=== PATIENT | male | born 1975 | race Caucasian/White ===

== ENCOUNTER 2017-04-07 19:34 | Emergency (ER) | payer OTHER ==
[~2017-04-07] VITALS: Ht 152.4 cm; Wt 45.0 kg
[~2017-04-07 19:34] MED LIST: GLC/500 PO; LEVO125T4 PO; LRS10; PRLSR20 PO
[2017-04-07 19:43] VITALS: Ht 152.4 cm; Wt 45.0 kg
[2017-04-07] MEDS ORDERED: LPT20 PO (21:21)
[2017-04-07] MEDS ORDERED: METF500T5 PO (21:21)
[2017-04-07] MEDS ORDERED: AMT10 PO (21:21)
[2017-04-07] MEDS ORDERED: SULF800T23 PO (21:21)
[2017-04-07] MEDS ORDERED: SODIUM CHLORIDE 0.9% 1000ML 1,000 ML IV STA (21:24)
[2017-04-07] MEDS ORDERED: IBUPROFEN 200 MG TAB PO STA (21:24)
[2017-04-07] MEDS ORDERED: MoRPHine SULFATE 4 MG/ML 1 ML CARP\\VIAL IV STA (21:24)
[2017-04-07] MEDS ORDERED: ACETAMINOPHEN 325 MG TAB PO STA (21:24)
--- NOTE | 2017-04-07 21:40 | EMERGENCY ROOM VISIT NOTE ---
History Report prepared by Butch: Yuri Mandel Under the Supervision of: Dr. Dereck Boone M.D. First contact with patient: 21:03 Chief Complaint: URINARY SYMPTOMS Stated Complaint: UTI Nursing Triage Summary: Patient is being treated for UTI started on Bactrium today and AZO for pain. Worsening pain in right groin. History of Present Illness The patient is a 41 year old white male with a past medical history of diabetes , hyperthyroid, high cholesterol, and UTIs who presents to the ED with a cc of constant pain with urination beginning earlier today. Positive scrotum pain, penis pain, fever, chills, and vomiting. Negative hematuria, penile discharge, alcohol use, tobacco use, or drug use. He has been treated for a UTI with antibiotics earlier today. He is taking all of his medications. Source of History: patient, parent Onset: earlier today Position: other (urinary tract) Timing: constant Associated Symptoms: + fevers, + chills, + vomiting Review of Systems See HPI for pertinent positives and negatives. A total of ten systems were reviewed and were otherwise negative. Past Medical & Surgical Medical Problems: (1) Intellectual disability (2) Klippel-Feil syndrome (3) Scoliosis Surgical Problems: (1) Status post lumbar spinal fusion (2) Status post orchiopexy Family History Breast cancer AUNT Congestive heart failure GRANDMOTHER Diabetes mellitus GRANDFATHER Uncle Hypertension GRANDMOTHER Social History Smoking Status: Never Smoker Alcohol Use: none Drug Use: none Marital Status: single Housing Status: lives with family Occupation Status: employed, disabled Current/Historical Medications Scheduled Amitriptyline HCl (Amitriptyline HCl), 1-2 TABS PO HS Atorvastatin (Atorvastatin Calcium), 20 MG PO DAILY Ciprofloxacin (Ciprofloxacin HCl), 1 TAB PO QD Levothyroxine Sodium (Levothyroxine Sodium), 1 TAB PO DAILY Metformin Hcl Er (Glucophage Er), 500 MG PO BID Omeprazole (Prilosec), 20 MG PO DAILY Sulfa/Trimethoprim (Bactrim Ds 800MG/160MG), 1 TAB PO BID Scheduled PRN Tramadol (Ultram), 50 MG PO Q8H PRN for Pain Allergies Coded Allergies: Iodinated Diagnostic Agents (Verified Allergy, Intermediate, iodine dye injected before steroid believed to cause rash, 04/07/17) Physical Exam Vital Signs Date Time Temp Pulse Resp B/P (MAP) Pulse Ox O2 Delivery O2 Flow Rate FiO2 04/08/17 01:30 81 20 94/64 98 04/08/17 00:31 86 18 108/74 Room Air 04/07/17 23:05 37.0 98 16 104/63 98 Room Air 04/07/17 19:43 37.8 127 18 115/71 98 Room Air Physical Exam GENERAL: Awake, alert, well-appearing, NAD HENT: Normocephalic, atraumatic. EYES: Mild conjunctival injection of the right eye. No drainage. Sclera non- icteric. NECK: Supple. No nuchal rigidity. FROM. RESPIRATORY: CTAB, no rhonchi, wheezing, crackles CARDIAC: Tachycardic and regular, no MRG ABDOMEN: Soft, NTND, BS+ MSK: No CVA TTP. No chest wall TTP, no LE edema : Mildly enlarged and tenderness of the left testicle. No scrotum swelling No penile pain. No peroneal pain or crepitus. NEURO: GCS 15, CN 2-12 intact, moves all 4s on command SKIN: No rash or jaundice noted. Medical Decision & Procedures ER Provider Diagnostic Interpretation: Radiology results as stated below per my review and radiologist interpretation: US SCROTAL: No intratesticular mass lesion or torsion. Hyperemia of the left testicle and epididymis suggesting the epididymo- orchitis. Small left hydrocele with septation. Radiologist: Smiley Au MD. Laboratory Results 04/07/17 21:30 Red Blood Count 4.64, Mean Corpuscular Volume 85.3, Mean Corpuscular Hemoglobin 31.0, Mean Corpuscular Hemoglobin Concent 36.4, Mean Platelet Volume 9.1, Neutrophils (%) (Auto) 87.3, Lymphocytes (%) (Auto) 2.9, Monocytes (%) (Auto) 9.0, Eosinophils (%) (Auto) 0.1, Basophils (%) (Auto) 0.2, Neutrophils # (Auto) 15.58, Lymphocytes # (Auto) 0.52, Monocytes # (Auto) 1.61, Eosinophils # (Auto) 0.01, Basophils # (Auto) 0.03 04/07/17 21:30 Test 04/07/17 21:30 04/07/17 23:35 White Blood Count 17.84 K/uL (4.8-10.8) Red Blood Count 4.64 M/uL (4.7-6.1) Hemoglobin 14.4 g/dL (14.0-18.0) Hematocrit 39.6 % (42-52) Mean Corpuscular Volume 85.3 fL (80-100) Mean Corpuscular Hemoglobin 31.0 pg (25-34) Mean Corpuscular Hemoglobin Concent 36.4 g/dl (32-36) Platelet Count 232 K/uL (130-400) Mean Platelet Volume 9.1 fL (7.4-10.4) Neutrophils (%) (Auto) 87.3 % Lymphocytes (%) (Auto) 2.9 % Monocytes (%) (Auto) 9.0 % Eosinophils (%) (Auto) 0.1 % Basophils (%) (Auto) 0.2 % Neutrophils # (Auto) 15.58 K/uL (1.4-6.5) Lymphocytes # (Auto) 0.52 K/uL (1.2-3.4) Monocytes # (Auto) 1.61 K/uL (0.11-0.59) Eosinophils # (Auto) 0.01 K/uL (0-0.5) Basophils # (Auto) 0.03 K/uL (0-0.2) RDW Standard Deviation 39.4 fL (36.4-46.3) RDW Coefficient of Variation 12.6 % (11.5-14.5) Immature Granulocyte % (Auto) 0.5 % Immature Granulocyte # (Auto) 0.09 K/uL (0.00-0.02) Anion Gap 10.0 mmol/L (3-11) Est Creatinine Clear Calc Drug Dose 48.1 ml/min Estimated GFR () 79.1 Estimated GFR (Non- 68.3 BUN/Creatinine Ratio 10.2 (10-20) Calcium Level 8.8 mg/dl (8.5-10.1) Urine Color ORANGE Urine Appearance CLOUDY (CLEAR) Urine pH (4.5-7.5) Urine Specific [place] 1.013 (1.000-1.030) Urine Protein NEG (NEG) Urine Glucose (UA) (NEG) Urine Ketones (NEG) Urine Occult Blood (NEG) Urine Nitrite (NEG) Urine Bilirubin (NEG) Urine Urobilinogen (NEG) Urine Leukocyte Esterase (NEG) Urine RBC (Auto) /hpf (0-4) Urine RBC 5-10 /hpf (0-4) Urine WBC >30 /hpf (0-5) Urine Epithelial Cells >30 /lpf (0-5) Urine Bacteria 2+ (NEG) Laboratory results reviewed by me Medications Administered Medications (Trade) Dose Ordered Sig/Shari Route Start Time Stop Time Status Last Admin Dose Admin Sodium Chloride 1,000 ml @ 999 mls/hr Q1H1M STAT IV 04/07/17 21:24 04/07/17 22:24 DC 04/07/17 21:47 999 MLS/HR Morphine Sulfate (MoRPHine SULFATE INJ) 4 mg NOW STAT IV 04/07/17 21:24 04/07/17 21:26 DC 04/07/17 21:46 4 MG Ibuprofen (Advil Tab) 400 mg NOW STAT PO 04/07/17 21:24 04/07/17 21:26 DC 04/07/17 21:46 400 MG Acetaminophen (Tylenol Tab) 650 mg NOW STAT PO 04/07/17 21:24 04/07/17 21:26 DC 04/07/17 21:46 650 MG Ceftriaxone Sodium (Rocephin Inj) 1 gm NOW STAT IV 04/07/17 22:30 04/07/17 22:31 DC 04/07/17 22:59 1 GM Acetaminophen/ Hydrocodone Bitart (Renick 10/325 Tab) 1 tab ONE STAT PO 04/08/17 00:47 04/08/17 00:50 DC 04/08/17 01:18 1 TAB ED Course 2102: The patient was evaluated in room C11. A complete history and physical exam was performed. 2123: Tylenol Tab 650mg PO, Advil Tab 400mg PO, Morphine Sulfate Inj 4mg IV, Sodium Chloride 1000 ml @ 999 mls/hr IV 2230: Rocephin Inj 1gm IV 0010: I reevaluated the patient, and he was feeling better. 0040: I reevaluated the patient. Discussed results and discharge instructions: He verbalized understanding and agreement. The patient is ready for discharge. Medical Decision The patient is a 41 year old white male with a past medical history of diabetes , hyperthyroid, high cholesterol, and UTIs who presents to the ED with a cc of constant pain with urination beginning earlier today. Positive scrotum pain, penis pain, fever, chills, and vomiting. Negative hematuria, penile discharge, alcohol use, tobacco use, or drug use. Differential diagnosis: Etiologies such as UTI, torsion, mass, infection, hernia, hydrocele, epididymitis, trauma, intra-abdominal process, as well as others were entertained. Patient was seen and evaluated at the bedside. Patient was recently told and treated for a UTI with Bactrim. Patient was still having significant groin pain. Patient was seen and noted to have an enlarged left testicle and painful posterior testicle likely consistent with epididymitis and orchitis. Patient blood work and did receive antibiotics and fluids. Patient's tachycardia improved. Patient did have a white blood cell count of 17. Patient did receive an ultrasound which showed that he did have epididymitis orchitis. Given that the patient's pain was significantly improved the patient's tachycardia resolved with an ultrasound that did not show abscess patient was deemed a suitable candidate for outpatient treatment. Patient was told to stop taking the Bactrim and start taking ciprofloxacin once daily for 10 days. Patient was also told to wear briefs, use ice packs, Motrin and Tylenol round- the-clock for pain control. Patient tolerated by mouth, pain controlled, and patient has family at home and they were given strict follow-up, discharge, and curb cautions. Patient family agreed with plan of care patient was safely discharged home. Medication Reconcilliation Current Medication List: was personally reviewed by me Blood Pressure Screening Patient's blood pressure: Normal blood pressure Impression Primary Impression: Epididymitis Additional Impressions: Orchitis UTI (urinary tract infection) Scribe Attestation The scribe's documentation has been prepared under my direction and personally reviewed by me in its entirety. I confirm that the note above accurately reflects all work, treatment, procedures, and medical decision making performed by me. Departure Information Dispostion Home / Self-Care Prescriptions Tramadol (Ultram) 50 Mg Tab 50 MG PO Q8H Y for Pain, #12 TAB Prov: Dereck Boone M.D. 04/08/17 Ciprofloxacin (Ciprofloxacin HCl) 500 Mg Tab 1 TAB PO QD for 10 Days, #10 TAB Prov: Dereck Boone M.D. 04/08/17 Referrals Carrington Bowen III, M.D. (PCP) Patient Instructions ED Orchitis, Epididymitis Orchitis Tx, [facility] Additional Instructions Please return to the emergency department if you have worsening or recurrent symptoms not amenable to at-home treatment. Please call for a follow-up appointment with her primary care physician. Please take your medications as prescribed. If you have other concerns and/or complaints please feel free to also call your primary care physician's office or return the ED for further evaluation, management, and treatment. You received narcotic or benzodiazepene medication while in the emergency room today. This is an addictive medication that may cause drowziness as well as constipation. Do not drive, operate heavy machinery, or drink alcohol under the influence of this medication. Take 600 mg Ibuprofen every 6 hours with food for pain for no more than 2 consecutive days. You may take 1000 mg tylenol every 6 hours as needed for pain. Take ciprofloxacin which was sent to your pharmacy, and discontinue use of the bactrim you were given. Take Tramadol for breakthrough pain Radiographs, ultrasounds, and CTs will be reread by a radiologist in the morning. Culture results are usually available in approx 48 hours You have been examined and treated today on an emergency basis only. This is not a substitute for, or an effort to provide, complete comprehensive medical care. It is impossible to recognize and treat all injuries or illnesses in a single emergency department visit. It is therefore important that you follow up closely with [facility]. Call as soon as possible for an appointment. Thank you for your time and consideration. I look forward to speaking with you again soon. Please don't hesitate to call us if you have any questions. Problem Qualifiers Additional Impressions: UTI (urinary tract infection) Urinary tract infection type: acute cystitis Hematuria presence: with hematuria Qualified Codes: N30.01 - Acute cystitis with hematuria
[2017-04-07 21:46] LABS: BASO % 0.2 %; BASO ABS # 0.03 K/uL (0-0.2); COMPLETE YES; EOS % 0.1 %; HEMATOCRIT 39.6 % (42-52); IG% 0.5 %; LYMPH % 2.9 %; LYMPH ABS # 0.52 K/uL (1.2-3.4); MEAN CELL VOLUME 85.3 fL (80-100); MEAN CORPUSCULAR HGB CONC 36.4 g/dl (32-36); MEAN PLATELET VOLUME 9.1 fL (7.4-10.4); NEUT % 87.3 %; PLATELET COUNT 232 K/uL (130-400); RED BLOOD COUNT 4.64 M/uL (4.7-6.1); WHITE BLOOD COUNT 17.84 K/uL (4.8-10.8)
[2017-04-07 21:59] LABS: BUN/CREATININE RATIO 10.2 (10-20); CALCIUM 8.8 mg/dl (8.5-10.1); CREATININE 1.3 mg/dl (0.60-1.40); POTASSIUM 3.2 mmol/L (3.5-5.1)
[2017-04-07] MEDS ORDERED: CEFTRIAXONE SOD INJ 1 GM ADDVIAL IV STA (22:30)
[2017-04-07 23:05] VITALS: TEMP 37
[2017-04-08 00:22] LABS: MANUAL MICROSCOPIC REQUIRED? YES; REVIEW REQ? NO; URINE APPEARANCE CLOUDY (CLEAR); URINE COLOR ORANGE
[2017-04-08 00:23] LABS: SULFASALICYLIC ACID NEG (NEG)
[2017-04-08 00:24] LABS: URINE SPECIFIC GRAVITY 1.013 (1.000-1.030)
[2017-04-08 00:35] LABS: URINE WBC >30 /hpf (0-5)
[2017-04-08 00:37] LABS: URINE BACTERIA 2+ (NEG)
[2017-04-08 00:39] LABS: ZZUR CULT IF INDIC CLEAN CATCH YES
[2017-04-08] MEDS ORDERED: HYDROCODONE/ACETAMI 10/325 TAB PO STA (00:47)
[2017-04-08] MEDS ORDERED: TRAM-10 PO (00:56)
[2017-04-08] MEDS ORDERED: CPR/500 PO (00:56)
[2017-04-08 01:30] VITALS: BP 94/64; PULSE 81; O2SAT 98
--- NOTE | 2017-04-08 07:14 | DIAGNOSTIC IMAGING REPORT ---
TESTICULAR ULTRASOUND HISTORY: Left-sided sided testicular pain and mild swelling COMPARISON: None. FINDINGS: Right testis: 3.2 x 1.7 x 1.3 cm. There are no intratesticular masses. Normal color flow. No hydrocele. The epididymis is unremarkable. Left testis: 2.7 x 1.4 x 2.2 cm. There are no intratesticular masses. Increased color flow. Small hydrocele. The epididymis is hypervascular and enlarged. IMPRESSION: Left-sided epididymoorchitis with a small left hydrocele. Normal right testis. Electronically signed by: Henok Benitez M.D. 04/08/2017 7:12 AM Dictated Date/Time: 04/08/2017 7:11 AM
== END 2017-04-08 01:33 | disposition home or self-care (01) ==
LOC: C.EDB 19:35 → C.EDC 04-08 01:33
DX: N45.1 Epididymitis (principal); N45.2 Orchitis; N30.01 Acute cystitis with hematuria; E11.9 Type 2 diabetes mellitus without complications; E05.90 Thyrotoxicosis, unspecified without thyrotoxic crisis or storm; R11.10 Vomiting, unspecified; E78.00 Pure hypercholesterolemia, unspecified; Z87.440 Personal history of urinary (tract) infections; Q76.1 Klippel-Feil syndrome; M41.9 Scoliosis, unspecified; Z80.9 Family history of malignant neoplasm, unspecified; Z82.49 Family history of ischemic heart disease and other diseases of the circulatory system; Z83.3 Family history of diabetes mellitus; Z79.899 Other long term (current) drug therapy

== ENCOUNTER 2017-11-13 19:07 | Emergency (ER) | payer OTHER ==
[~2017-11-13] VITALS: Ht 152.4 cm; Wt 47.9 kg
[~2017-11-13 19:07] MED LIST changes: +AMT10 PO; +CPR/500 PO; -GLC/500 PO; -LEVO125T4 PO; +LEVO125T5 PO; +LPT20 PO; -LRS10; +METF500T5 PO; +SULF800T23 PO
[2017-11-13 19:17] VITALS: TEMP 37.1; Ht 152.4 cm; Wt 47.9 kg
[2017-11-13] MEDS ORDERED: IBUPROFEN 200 MG TAB PO STA (19:48)
[2017-11-13] MEDS ORDERED: CYCLOBENZAPRINE HCL 10 MG TAB PO STA (19:48)
[2017-11-13] MEDS ORDERED: OXYCODONE/ACETAMINOPHEN 5-325 TAB PO STA (19:48)
--- NOTE | 2017-11-13 20:42 | DIAGNOSTIC IMAGING REPORT ---
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 TECHNIQUE: Frontal, bilateral oblique, lateral, and coned in lateral views of the lumbar spine were obtained. COMPARISON: 02/22/2012. FINDINGS: Mild levocurvature of the lumbar spine centered at L2-3. No pars defect. Normal lumbar lordosis. Vertebral bodies maintain normal height and alignment. Intervertebral disc heights preserved. No compression deformity or evidence of subluxation. No osseous neural foraminal narrowing. Moderate stool burden. IMPRESSION: 1. No acute osseous injury. 2. No significant degenerative change. 3. Moderate stool burden suggest constipation. Electronically signed by: Jorge A Cordon M.D. 11/13/2017 8:41 PM Dictated Date/Time: 11/13/2017 8:40 PM
--- NOTE | 2017-11-13 20:44 | DIAGNOSTIC IMAGING REPORT ---
THORACIC SPINE 3 VIEWS ROUTINE CLINICAL HISTORY: 42 years-old Male presenting with mid/low back pain. TECHNIQUE: 3 views of the thoracic spine were obtained. COMPARISON: 03/02/2014. FINDINGS: Significant kyphotic deformity with dextrocurvature of the upper thoracic spine. Allowing for scoliotic curvature, no gross evidence of a compression deformity no violation is significantly limited. Gracile and absence of fusion of mid cervical vertebral bodies suggested. Intervertebral disc heights grossly preserved. Disc osteophyte complexes noted at several levels. No advanced degenerative change IMPRESSION: 1. No gross evidence of acute osseous injury of the thoracic spine allowing for significant curvature. 2. Significant kyphotic deformity and scoliosis. 3. 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 Electronically signed by: Jorge A Cordon M.D. 11/13/2017 8:43 PM Dictated Date/Time: 11/13/2017 8:41 PM
--- NOTE | 2017-11-13 20:48 | EMERGENCY ROOM VISIT NOTE ---
History First contact with patient: 19:33 Chief Complaint: BACK PAIN Stated Complaint: BACK PAIN History of Present Illness The patient is a 42 year old male who presents to the Emergency Room with complaints of midthoracic and low back pain for the last 2 days. 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 The patient has a history of scoliosis and chronic back pain. They have tried tramadol at home with minimal relief. He denies any numbness or tingling into his legs. No difficulty breathing. No weakness. No problems with urinary or bowel incontinence. Review of Systems 6 system review negative. Please see pertinent positives in the history of present illness section. Past Medical/Surgical History Medical Problems: (1) Intellectual disability (2) Klippel-Feil syndrome (3) Scoliosis Surgical Problems: (1) Status post lumbar spinal fusion (2) Status post orchiopexy Family History Breast cancer AUNT Congestive heart failure GRANDMOTHER Diabetes mellitus GRANDFATHER Uncle Hypertension GRANDMOTHER Social History Smoking Status: Never Smoker Alcohol Use: none Drug Use: none Marital Status: single Housing Status: lives with family Occupation Status: employed, disabled Current/Historical Medications Scheduled Amitriptyline HCl (Amitriptyline HCl), 1-2 TABS PO HS Atorvastatin (Atorvastatin Calcium), 20 MG PO DAILY Ciprofloxacin (Ciprofloxacin HCl), 1 TAB PO QD Cyclobenzaprine Hcl (Flexeril), 10 MG PO TID Levothyroxine Sodium (Levothyroxine Sodium), 1 TAB PO DAILY Metformin Hcl Er (Glucophage Er), 500 MG PO BID Omeprazole (Prilosec), 20 MG PO DAILY Prednisone (Prednisone), 50 MG PO DAILY Sulfa/Trimethoprim (Bactrim Ds 800MG/160MG), 1 TAB PO BID Scheduled PRN Oxycodone/Acetaminophen 5MG/325MG (Percocet 5MG/325MG), 1-2 TABS PO Q4H PRN for Pain Physical Exam Vital Signs Date Time Temp Pulse Resp B/P (MAP) Pulse Ox O2 Delivery O2 Flow Rate FiO2 11/13/17 21:30 58 18 123/70 98 Room Air 11/13/17 19:17 37.1 81 18 119/81 100 Room Air Physical Exam VITALS: Vitals are noted on the nurse's note and reviewed by myself. Vital signs stable. GENERAL: 42-year-old male,, in no acute distress, SKIN: The skin was without rashes, erythema, edema, or bruising. HEAD: Normocephalic atraumatic. NECK: Full range of motion of the neck cervical spine is nontender. No JVD. MUSCULOSKELETAL: Mild tenderness to palpation over the lower thoracic and lumbar spinous processes. Paraspinous muscles are very tense in this area bilaterally. Quadricep and hamstring strength 5/5 bilaterally. Sensation in the lower extremities is intact bilaterally. DP pulse +2. NEURO: Patient was alert and oriented to person place and time. Normal sensation to touch. No focal neurological deficits. Medical Decision & Procedures ER Provider Diagnostic Interpretation: Thoracic/lumbar x-ray IMPRESSION: 1. No acute osseous injury. 2. No significant degenerative change. 3. Moderate stool burden suggest constipation. Electronically signed by: Jorge A Cordon M.D. 11/13/2017 8:41 PM IMPRESSION: 1. No gross evidence of acute osseous injury of the thoracic spine allowing for significant curvature. 2. Significant kyphotic deformity and scoliosis. 3. 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 Electronically signed by: Jorge A Cordon M.D. 11/13/2017 8:43 PM Medications Administered Medications (Trade) Dose Ordered Sig/Shari Route Start Time Stop Time Status Last Admin Dose Admin Oxycodone/ Acetaminophen (Percocet 5-325mg Tab) 1 tab NOW STAT PO 11/13/17 19:48 11/13/17 19:51 DC 11/13/17 20:00 1 TAB Cyclobenzaprine HCl (Flexeril Tab) 5 mg NOW STAT PO 11/13/17 19:48 11/13/17 19:51 DC 11/13/17 19:59 5 MG Prednisone (PredniSONE TAB) 60 mg NOW STAT PO 11/13/17 19:48 11/13/17 19:51 DC 11/13/17 20:00 60 MG Ibuprofen (Advil Tab) 400 mg NOW STAT PO 11/13/17 19:48 11/13/17 19:51 DC 11/13/17 20:00 400 MG Oxycodone/ Acetaminophen (Percocet 5/ 325MG Home Pack) 1 homepack UD ONCE PO 11/13/17 21:00 11/13/17 21:01 DC 11/13/17 21:30 1 HOMEPACK ED Course The patient was seen and examined He was medicated with prednisone 60 mg, Percocet 1 tab, Flexeril 5 mg and ibuprofen 400 mg Imaging was performed and reviewed upon reevaluation, he was slightly more comfortable. The patient was also seen and examined by my supervising physician who is in agreement with my plan Discharge instructions were reviewed, and he was discharged in good condition Medical Decision Differential diagnosis: Muscular strain spine fracture, ligamentous injury, subluxation, spondylolisthesis, spondylosis, herniated disc, contusion, muscle spasm This patient is a 42-year-old male presents to the emergency department with complaints of midthoracic and low back pain after lifting a heavy object a few days ago. He did not have any signs of cauda equina syndrome or neurovascular compromise. Imaging did not show any acute changes. I believe this is likely a muscular strain causing an acute exacerbation of his chronic pain. The patient will be treated with narcotics, muscle relaxants and steroids. The patient's mother was comfortable with this plan. They will follow up with the primary care physician and pain clinic as soon as possible. They agree to return with worsening symptoms This chart was completed in part utilizing [employer] Speech Voice Recognition software. Attempts were made to minimize the grammatical errors, random word insertions, pronoun errors and incomplete sentences. Any formal questions or concerns about the content, text or information contained within the body of this dictation should be directly addressed to the provider for clarification. Medication Reconcilliation Current Medication List: was personally reviewed by me Blood Pressure Screening Patient's blood pressure: Normal blood pressure Impression Primary Impression: Strain of lumbar region Additional Impression: Acute exacerbation of chronic low back pain Departure Information Dispostion Home / Self-Care Condition GOOD Prescriptions Oxycodone/Acetaminophen 5MG/325MG (PERCOCET 5MG/325MG) Tab 1-2 TABS PO Q4H Y for Pain, #20 TAB For Initial Treatment Prov: Anaid Farias PA-C 11/13/17 Cyclobenzaprine Hcl (FLEXERIL) 10 Mg Tab 10 MG PO TID for Muscle Spasms, #20 TAB Prov: Anaid Farias PA-C 11/13/17 Prednisone (Prednisone) 50 Mg Tab 50 MG PO DAILY for 4 Days, #4 TAB Prov: Anaid Farias PA-C 11/13/17 Referrals Carrington Bowen III, M.D. (PCP) Patient Instructions [facility] Additional Instructions Daljit has been evaluated in the emergency department for back pain. X-rays did not show any acute abnormalities Please take the entire course of steroids. Please keep an eye on blood sugar as this will increase while on steroids. Flexeril every 8 hours as needed for muscle spasm/pain. Please also do not drink alcohol or drive while taking this medication. Ibuprofen 400 mg every 6 hours Percocet 1-2 tabs every 4 hours for severe pain. Do not drink alcohol or drive while taking this medication. This may be taken with ibuprofen, but avoid Tylenol. Please take a stool softener with this medication as it will cause constipation Please follow-up with your primary care physician in addition to the pain doctor as soon as possible. Please call Thursday morning for a follow-up appointment. Please do not hesitate to return to the emergency department with any new, worsening or concerning symptoms; especially, weakness in the legs, Numbness or tingling in the groin, problems with incontinence of urination or bowel movements It was a pleasure participating in your care Problem Qualifiers
[2017-11-13] MEDS ORDERED: PERCOCET HOME PACK PO ONE (21:00)
[2017-11-13] MEDS ORDERED: CYCL10TA6 PO (21:04)
[2017-11-13] MEDS ORDERED: PRED50TA PO (21:04)
[2017-11-13] MEDS ORDERED: OXYC-57 PO (21:04)
[2017-11-13 21:30] VITALS: BP 123/70; PULSE 58; O2SAT 98
--- NOTE | 2017-11-13 21:30 | EMERGENCY ROOM VISIT NOTE ---
ED Visit Note First contact with patient: 19:33 The patient was seen and examined with Anaid Farias [facility]. I agree with the history, physical and findings. Please see the note for disposition and details.
== END 2017-11-13 21:36 | disposition home or self-care (01) ==
LOC: C.EDB 19:08 → C.EDD 21:36
DX: S39.012A Strain of muscle, fascia and tendon of lower back, initial encounter (principal); X50.9XXA Other and unspecified overexertion or strenuous movements or postures, initial encounter; F79 Unspecified intellectual disabilities; Q76.1 Klippel-Feil syndrome; M41.9 Scoliosis, unspecified; Z79.899 Other long term (current) drug therapy